=== PATIENT | female | born 1945 | race Caucasian/White ===

== ENCOUNTER → 2016-05-16 | Outpatient (CLI) | payer MEDICARE, BC ==
--- NOTE | 2016-05-16 15:39 | BD ---
EXAMINATION TYPE: MG DEXA axial skeleton. DATE OF EXAM: 05/16/2016 3:28 PM COMPARISON: NONE CLINICAL HISTORY: rt breast cancer 2010 ,osteoporosis Height: 5'4 Weight: 146 FRAX RISK QUESTIONS: Alcohol (3 or more units per day): no Family History (Parent hip fracture): no Glucocorticoids (More than 3mos): no (Ex: prednisone, prednisolone, methylprednisolone, dexamethasone, and hydrocortisone). History of Fracture in Adulthood: no Secondary Osteoporosis: 1. Type 1 Diabetes: no 2. Hyperthyroidism: no 3. Menopause before 45: no 4. Malnutrition: no 5. Chronic liver disease: no Rheumatoid Arthritis: no Current Tobacco Use: yes RISK FACTORS HISTORY OF: Surgery to Hip(right When: total rt hip 2015 Smoke tobacco: Postmenopausal woman: Lost more than 2 inches in height since high school: MEDICATIONS: Additional Medications: depression, Additional History: rt breast cancer 2009, EXAM MEASUREMENTS: Bone mineral densitometry was performed using the [employer]. Bone mineral density as measured about the Lumbar spine is: ----- L1-L4(G/cm2): 0.933 T Score Values are as follows: ----- L2: -3.1 ----- L3: -2.1 ----- L4: -0.9 ----- L1-L4: -2.1 Bone mineral density about the L hip (g/cm2): 0.667 T Score values are as follows: -----L Neck: -2.7 -----L Intertrochanter: -3.2 IMPRESSION: Osteoporosis (T Score less than -2.5) as noted by T Score values at the:L2 , Left hip There is increased fracture risk and therapy is usually indicated based on age. Re-Screen 1-2 years. NOTE: T-SCORE=SD OF THE YOUNG ADULT MEAN.
--- NOTE | 2016-05-16 15:59 | XR ---
EXAMINATION TYPE: XR chest 2V DATE OF EXAM: 05/16/2016 3:38 PM COMPARISON: Prior chest x-ray 26 December 2011 HISTORY: COPD TECHNIQUE: Frontal and lateral views of the chest are obtained. FINDINGS: There is no focal air space opacity, pleural effusion, or pneumothorax seen. The cardiac silhouette size is within normal limits. There is eventration of the right hemidiaphragm. Prominent lung volumes are again noted compatible with COPD. Surgical clips present in the right axillary bety on. The osseous structures are intact. IMPRESSION: No acute cardiopulmonary process.
--- NOTE | 2016-05-17 08:55 | MM ---
Reason for exam: screening (asymptomatic). Last mammogram was performed 10 years and 4 months ago. History: Patient is postmenopausal. Family history of breast cancer in mother at age 59. Benign excisional biopsy of the left breast, 1995. Taking estrogen for 8 years 8 months beginning at age 52. Physical Findings: A clinical breast exam by your physician is recommended on an annual basis and results should be correlated with mammographic findings. MG 3D Screening Mammo W/Cad Bilateral CC and MLO view(s) were taken. Prior study comparison: January 05, 2006, bilateral workup diagnostic mammogram. December 27, 2005, bilateral screening mammogram w/CAD. There are scattered fibroglandular densities. No suspicious calcifications are seen. Stable post operative distortion left breast. No significant changes when compared with prior studies. ASSESSMENT: Benign, BI-RAD 2 RECOMMENDATION: Routine screening mammogram of both breasts in 1 year.
== END | disposition home or self-care (01) ==
LOC: RADMAMWWP 14:46
PROVIDERS: ATTEND Internal Medicine
DX: Z12.31 Encounter for screening mammogram for malignant neoplasm of breast (principal); M81.0 Age-related osteoporosis without current pathological fracture; J44.9 Chronic obstructive pulmonary disease, unspecified
CPT/HCPCS: 71020; 77080; 77063; G0202